=== PATIENT | female | born 1940 | race Caucasian/White ===

== ENCOUNTER 2024-07-07 18:43 | Inpatient (IN) | payer MEDICARE, MEDICAID ==
[~2024-07-07] VITALS: Ht 154.9 cm; Wt 65.3 kg
[2024-07-07] MEDS ORDERED: CEFTRIAXONE 1GM/50ML 50 ML IV ONE (19:15)
[2024-07-07 19:54] LABS: HEMATOCRIT. 40.8 % (36.0-48.0); HEMOGLOBIN. 13.8 g/dL (12.0-16.0); MEAN CORPUSCULAR HEMOGLOBIN 29.7 pg (28.0-32.0); MEAN CORPUSCULAR HGB CONC 33.7 g/dL (31.0-37.0); MEAN PLATELET VOLUME 7.9 fl (7.4-10.4); PLATELET 249 x1000/uL (130-400); RED BLOOD CELL COUNT 4.64 mill/uL (4.2-5.4); WHITE BLOOD COUNT 20.9 x1000/uL (4.5-11.0)
[2024-07-07 19:59] LABS: POTASSIUM 3.6 mEq/L (3.5-5.1)
[2024-07-07 20:00] LABS: DIFFERENTIAL COMMENT 1
[2024-07-07 20:01] LABS: CALCIUM 9.7 mg/dL (8.7-10.4)
[2024-07-07 20:05] LABS: CREATININE 1.7 mg/dL (0.6-1.0); PROTHROMBIN TIME 11.6 sec (9.6-11.0)
[2024-07-07 20:43] LABS: PLATELET ESTIMATE NORMAL
[2024-07-08] MEDS: SODIUM CHLORIDE 0.9% 1000ML BAG (SEPSIS BOLUS) IV ONE (00:23)
[2024-07-08] MEDS: CEFTRIAXONE 1GM/50ML 50 ML IV NR (00:34)
[2024-07-08 02:40] LABS: CLARITY URINE TURBID (CLEAR); COLOR URINE DARK YELLOW (YELLOW); GLUCOSE URINE NEGATIVE (NEGATIVE); KETONES URINE NEGATIVE (NEGATIVE); LEUKOCYTE ESTERASE URINE 3+ (NEGATIVE); NITRITE URINE POSITIVE (NEGATIVE); OCCULT BLOOD URINE 2+ (NEGATIVE); PROTEIN URINE 2+ (NEGATIVE); SPECIFIC GRAVITY URINE 1.011 (1.005-1.030)
[2024-07-08 05:43] LABS: BACTERIA URINE 4+; SQUAMOUS EPITHELIAL CELL URINE NONE SEEN /lpf (RARE/1+); WBC URINE TNTC /hpf (0-2)
[2024-07-08 11:00] VITALS: BP 79/54; PULSE 71; RESP 18; TEMP 36.5292
[2024-07-08 12:00] VITALS: BP 79/54; PULSE 71; RESP 18; TEMP 36.50292; O2SAT 99
[2024-07-08 16:00] VITALS: BP 84/66; PULSE 81; RESP 20; TEMP 36.6696; O2SAT 100
[2024-07-08] MEDS ORDERED: CEFEPIME 1GM IN DEXT 5% 50ML IV SCH (19:45)
[2024-07-08] MEDS ORDERED: ONDANSETRON HCL 4MG/2ML INJ IV PRN (19:45)
[2024-07-08] MEDS ORDERED: CLONIDINE 0.1MG TABLET PO PRN (19:45)
[2024-07-08 20:00] VITALS: BP 111/59; PULSE 87; RESP 18; TEMP 35.89176; O2SAT 98
[2024-07-08] MEDS: SODIUM CHLORIDE 0.9% 1,000 ML IV SCH (20:25)
[2024-07-08] MEDS: CEFEPIME 1GM/50ML 50 ML IV SCH (20:41)
[2024-07-08] MEDS: ENOXAPARIN 30MG/0.3ML SYR SUBCUT SCH (20:43)
[2024-07-09] VITALS: BP 135/68; PULSE 77; RESP 17; TEMP 36.61404; O2SAT 98
[2024-07-09 07:14] LABS: CHLORIDE 107 mEq/L (98-107); POTASSIUM 3.3 mEq/L (3.5-5.1); SODIUM 137 mEq/L (136-145)
[2024-07-09 07:15] LABS: CARBON DIOXIDE 19 mEq/L (21-32)
[2024-07-09 07:16] LABS: HEMATOCRIT. 39.3 % (36.0-48.0); HEMOGLOBIN. 13.1 g/dL (12.0-16.0); MEAN CORPUSCULAR HGB CONC 33.3 g/dL (31.0-37.0); MEAN CORPUSCULAR VOLUME 87.3 fL (81.0-99.0); MEAN PLATELET VOLUME 8.6 fl (7.4-10.4); PLATELET 245 x1000/uL (130-400); RED CELL DISTRIBUTION WIDTH 14.4 % (11.6-14.6)
[2024-07-09 07:20] LABS: CREATININE 1.4 mg/dL (0.6-1.0); DIFFERENTIAL COMMENT 1; GLUCOSE 122 mg/dL (70-105); TRIGLYCERIDE 143 mg/dL (0-150)
[2024-07-09 07:21] LABS: LDL CHOLESTEROL 47 mg/dL (5-100); UREA NITROGEN BLOOD 39 mg/dL (9-23)
[2024-07-09 07:22] LABS: CHOLESTEROL 108 mg/dL (<200); HDL CHOLESTEROL < 20 mg/dL (>65)
[2024-07-09 08:00] VITALS: BP 144/61; PULSE 74; RESP 20; TEMP 36.22512; O2SAT 97
[2024-07-09 11:03] LABS: PLATELET ESTIMATE NORMAL
[2024-07-09 11:53] LABS: *AMPHETAMINES SCREEN URINE NEGATIVE (NEGATIVE); *BARBITURATES SCREEN URINE NEGATIVE (NEGATIVE); *BENZODIAZEPINES SCREEN URINE NEGATIVE (NEGATIVE); *COCAINE SCREEN URINE NEGATIVE (NEGATIVE)
[2024-07-09 11:54] LABS: CANNABINOID URINE SCREEN NEGATIVE (NEGATIVE); ECSTASY MDMA SCREEN URINE NEGATIVE (NEGATIVE); METHADONE URINE SCREEN NEGATIVE (NEGATIVE); OPIATES URINE SCREEN NEGATIVE (NEGATIVE); PHENCYCLIDINE URINE SCREEN NEGATIVE (NEGATIVE)
[2024-07-09 12:00] VITALS: BP 113/65; PULSE 80; RESP 20; TEMP 36.114; O2SAT 100
[2024-07-09] MEDS: CEFEPIME 2GM/100ML 100 ML IV SCH (12:00)
[2024-07-09 16:00] VITALS: BP 121/71; PULSE 77; RESP 20; TEMP 36.3918; O2SAT 100
[2024-07-09 20:00] VITALS: BP 111/79; PULSE 60; RESP 18; TEMP 36.72516; O2SAT 95
[2024-07-10] VITALS: BP 115/70; PULSE 65; RESP 17; TEMP 36.6696; O2SAT 95
[2024-07-10 04:00] VITALS: BP 120/65; PULSE 62; RESP 18; TEMP 36.50292; O2SAT 96
[2024-07-10 08:00] VITALS: BP 126/54; PULSE 94; RESP 18; TEMP 36.55848; TEMP 37.11408; O2SAT 100; O2SAT 94
[2024-07-10] MEDS ORDERED: LIDOCAINE HCL 1% 10 MG/ML 10ML VIAL ONE (08:06)
[2024-07-10 12:00] VITALS: BP 142/82; PULSE 72; RESP 18; TEMP 36.78072; O2SAT 100
[2024-07-10 16:00] VITALS: BP 163/84; PULSE 81; RESP 18; TEMP 38.00304; O2SAT 100
[2024-07-10] MEDS: ACETAMINOPHEN 325MG TABLET PO PRN (17:18)
[2024-07-10 20:00] VITALS: BP 131/69; PULSE 80; RESP 19; TEMP 36.33624; O2SAT 99
[2024-07-10 21:32] LABS: HEMATOCRIT. 38.6 % (36.0-48.0); HEMOGLOBIN. 12.7 g/dL (12.0-16.0); MEAN CORPUSCULAR HEMOGLOBIN 28.9 pg (28.0-32.0); MEAN CORPUSCULAR HGB CONC 32.9 g/dL (31.0-37.0); MEAN PLATELET VOLUME 7.5 fl (7.4-10.4); PLATELET 310 x1000/uL (130-400); RED BLOOD CELL COUNT 4.39 mill/uL (4.2-5.4); RED CELL DISTRIBUTION WIDTH 14.7 % (11.6-14.6)
[2024-07-10 21:36] LABS: DIFFERENTIAL COMMENT 1; POTASSIUM 3.4 mEq/L (3.5-5.1)
[2024-07-10 21:37] LABS: CALCIUM 8.8 mg/dL (8.7-10.4)
[2024-07-10 21:59] LABS: PLATELET ESTIMATE NORMAL
[2024-07-10 22:00] LABS: ANISOCYTOSIS 1+
[2024-07-11] VITALS: BP 136/73; PULSE 73; RESP 18; TEMP 37.11408; O2SAT 100
[2024-07-11 04:00] VITALS: BP 162/76; PULSE 85; RESP 19; TEMP 36.3918; O2SAT 99
[2024-07-11 08:00] VITALS: BP 95/64; PULSE 65; RESP 18; TEMP 36.78072; O2SAT 97
[2024-07-11 08:03] LABS: POTASSIUM 3.6 mEq/L (3.5-5.1)
[2024-07-11 08:04] LABS: CALCIUM 9.2 mg/dL (8.7-10.4)
[2024-07-11 08:06] LABS: HEMATOCRIT. 37.1 % (36.0-48.0); HEMOGLOBIN. 12.7 g/dL (12.0-16.0); MEAN CORPUSCULAR HGB CONC 34.2 g/dL (31.0-37.0); MEAN CORPUSCULAR VOLUME 87.7 fL (81.0-99.0); MEAN PLATELET VOLUME 7.7 fl (7.4-10.4); PLATELET 350 x1000/uL (130-400); RED BLOOD CELL COUNT 4.23 mill/uL (4.2-5.4); RED CELL DISTRIBUTION WIDTH 14.4 % (11.6-14.6)
[2024-07-11 08:08] LABS: DIFFERENTIAL COMMENT 1
[2024-07-11 08:09] LABS: CREATININE 0.9 mg/dL (0.6-1.0)
[2024-07-11 11:43] LABS: PLATELET ESTIMATE NORMAL
[2024-07-11] MEDS: CEFTRIAXONE 2GM/50ML 50ML IV SCH (14:43)
[2024-07-11 15:18] VITALS: BP 128/76; PULSE 76; TEMP 98; O2SAT 98
[2024-07-11 16:00] VITALS: BP 157/86; PULSE 86; RESP 18; TEMP 36.72516; O2SAT 100
[2024-07-11 20:00] VITALS: BP 152/70; PULSE 73; RESP 16; TEMP 36.44736; O2SAT 100
== END 2024-07-11 20:59 | DRG 871 ==
LOC: ER 18:43 → 5WST 07-08 09:33 → 6EST 07-08 11:01
PROVIDERS: ADMIT Internal Medicine; ATTEND Internal Medicine
PROC: 02HV33Z Insertion of Infusion Device into Superior Vena Cava, Percutaneous Approach (ICD-10-PCS; principal; 2024-07-10)
PROC: B5181ZA Fluoroscopy of Superior Vena Cava using Low Osmolar Contrast, Guidance (ICD-10-PCS; 2024-07-10)
PROC: B548ZZA Ultrasonography of Superior Vena Cava, Guidance (ICD-10-PCS; 2024-07-10)
DX: A41.51 Sepsis due to Escherichia coli [E. coli] (principal); G93.41 Metabolic encephalopathy; N17.9 Acute kidney failure, unspecified; N39.0 Urinary tract infection, site not specified; Z16.12 Extended spectrum beta lactamase (ESBL) resistance; F03.90 Unspecified dementia, unspecified severity, without behavioral disturbance, psychotic disturbance, mood disturbance, and anxiety; I12.9 Hypertensive chronic kidney disease with stage 1 through stage 4 chronic kidney disease, or unspecified chronic kidney disease; N18.9 Chronic kidney disease, unspecified; M17.11 Unilateral primary osteoarthritis, right knee; Z79.899 Other long term (current) drug therapy
CPT/HCPCS: 36415; 36573; 80048; 80061; 80305; 81003; 83605; 84145; 85025; 87077; 87186; 93005; 93970; 97162; 99291; C1725; J0692; J0696; J1650; J3490; J7030